=== PATIENT | male | born 2000 | race African-American/Black ===

== ENCOUNTER 2019-01-19 19:20 | Emergency (ER) | payer MEDICAID ==
[~2019-01-19] VITALS: Ht 162.6 cm; Wt 116.9 kg
[2019-01-19 19:22] VITALS: BP 145/95
== END 2019-01-19 20:09 | disposition home or self-care (01) ==
LOC: ED 19:39
DX: H66.91 Otitis media, unspecified, right ear (principal)
CPT/HCPCS: 99283